=== PATIENT | female | born 1970 | race Caucasian/White ===

== ENCOUNTER → 2018-04-06 08:55 | Outpatient (CLI) | payer OTHER, SELFPAY ==
[2018-04-06 10:09] LABS: Cancer Antigen 125 < 6 U/mL (0-35)
== END ==
PROVIDERS: Visit Provider Nurse Practitioner Gerontology
DX: C55 Malignant neoplasm of uterus, part unspecified (principal)
CPT/HCPCS: 36415; 86304

== ENCOUNTER 2018-04-18 14:21 | Oncology outpatient (ONC) | payer OTHER, SELFPAY ==
--- NOTE | 2018-04-18 10:39 | P.PNONC_ITS ---
PN -Subjective Interval history: The patient is a 48 year old Female who is being seen in the clinic 04/18/2018. She carries a diagnosis of uterine carcinoma FIGO stage III. Patient presents today for her 6 month interval follow-up. She had a CT scan of the chest abdomen pelvis 10/05/2018 specifically to follow-up on the indeterminate findings in the lungs which included opacity in the right lung and an adjacent nodule. Reassuringly the CT scan described below showing no change without any new findings to suggest recurrent disease. Pt is requesting to repeat the scan noting incidental findings as well as her risk of recurrence. She is also followed by gynecology Dr Jackson. Keya has no new complaints on exam today, overall feeling quite well aside from a viral cold for almost 4 weeks now with a sore throat, no fever or malaise, mild cough. Remainder of review systems otherwise negative for any new symptoms such as focal bone pains chest pain shortness of breath lower extremity swelling or edema distention bloating or change in bowel habits. Past Medical History The patient's past medical history is significant for: 1) Endometrial adenocarcinoma, FIGO stage IIIa. Diagnosis/surgery: 01/02/2016. Hysteroscopy with D&C procedure. Indication was heavy menstrual bleeding for 2 years and an abnormal transvaginal ultrasound on 06/05/2015 which identified a focus of hypo-echogenicity in the fundus. Pathology was consistent with an endometrial type adenocarcinoma arising in a background of complex endometrial hyperplasia. FIGO grade was 2 out of 3. 01/13/2016. Robotic laparoscopy with Dr. Zita Marte. Pathology confirming a 3.5 cm endometrial lesion invading 8 mm of 28 mm myometria thickness (less than 50%). Histology was consistent with an endometrial adenocarcinoma arising in a background of complex atypical hyperplasia. FIGO grade was reported at 1. No LV I. 8 right pelvic lymph nodes and 5 periaortic lymph nodes were removed and none of which were involved with disease. Bilateral salpingo-oophorectomy identifying atypical epithelial proliferation of the right ovary consistent with his metastatic endometrial adenocarcinoma along the surface of the ovary. In the omentum only fibroadipose tissue was identified no neoplasm. Cytology from the washings however were positive immunostains: uniformly positive for PAX 8 and MOC 3. ER was positive. Final pathological stage was a FIGO IIIa. Clinical staging workup, baseline: 02/06/2016. CT of the chest abdomen and pelvis. Small amount of free fluid in the right lower hemipelvis was identified likely postoperative small hematoma. Indeterminate 3 mm right middle lung pulmonary nodule seen. Risk factors: Nulliparity, BSA, and endometrial hyperplasia. She's had no exogenous estrogen exposure. 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 MLH1 methylation of the MLH1 promoter region was positive consistent with a sporatic MSI-H presentation. No further testing for Tinoco syndrome was recommended. Postop CA 125 not drawn. Prognosis: Based on FIGO stage 5 year survival at 52%, the latter predicting an improved overall survival from baseline after treatment. Based on the patient's FIGO grade stage III she is a high risk for recurrence. Treatment plan: Adjuvant chemotherapy. Goals are curative. Utilization of adjuvant radiation therapy in the community setting is unproven at this time, would not be recommended outside of a clinical trial. However consult with radiation oncology at the completion of cycle 6 of therapy will be offered to the patient. Treatment regimen: 02/19/2016-06/29/2016. Carboplatin AUC of 6 every 3 weeks ?6 cycles. Paclitaxel 80 mg/m? weekly ?18. Dose reduction by 20% for both carboplatin and paclitaxel starting cycle 4 week 3. Patient had 1 week delay between cycle 4 week 2 and 3 of therapy secondary neutropenia. Post chemotherapy consultation with radiation oncology at [facility] resulted in no strong recommendation for post chemotherapy radiation which the patient concurred. Surveillance: NCCN 2017 guidelines: Physical exam every 3-6 months for years 2-3 then 6 months or annually. CEA 125 if initially elevated. Imaging if clinically indicated. 09/29/2016. CT of the chest abdomen and pelvis. No evidence of recurrence. This reports stable pulmonary nodules 2 in the left lower lobe both measuring 2 mm and one in the right lower lobe measuring 3 mm. In addition soft tissue thickening in the perirectal region likely scar tissue is unchanged 01/12/2017. CT chest abdomen pelvis with contrast. No evidence of recurrence. Right lower lobe lesion unchanged. No mention of left lower lobe lesions. In the medial right lung base is a new area of airspace opacity. 04/06/2017. CT chest abdomen and pelvis with contrast. No evidence of recurrence. Right lower lobe lesion unchanged. Nearby 4 mm nodule also unchanged since January 2017. No left lung lesions reported. Anterior mediastinal heterogeneous soft tissue density likely thymus hyperplasia unchanged. No adenopathy seen below the diaphragm. No ascites. Home Medications and Allergies Home Medications Medication Instructions Recorded Confirmed Type gabapentin [Neurontin] 300 mg PO HS #0 10/13/17 History pseudoephedrine HCl [Sudafed 12 120 mg PO Q12HP PRN #0 10/13/17 History Hour] azithromycin [Zithromax Z-Randy] 250 mg PO DAILY #6 tab 04/18/18 Rx Exam - Constitutional positive no acute distress, positive average body habitus - Routine HEENT Exam Eye: Present: conjunctivae pink. Absent: conjunctival icterus, scleral injection ENT: Present: mucous membranes moist, oropharynx clear Comments: mild erythema posterior pharynx - Routine Neck Exam Present: supple. Absent: lymphadenopathy - Routine Respiratory Exam Present: Clear to auscultation bilaterally. Absent: rales, rhonchi, wheezes - Routine Cardiovascular Exam Present: RRR, S1, S2. Absent: murmur, gallop, rubs, JVD - Routine Abdominal Exam Present: soft, normoactive bowel sounds. Absent: tenderness, distended, organomegaly, mass Palpation/Percussion: Absent: fluid waves - Routine Extremities Exam Absent: edema, calf tenderness - Routine Skin Exam Present: intact, normal turgor. Absent: rash - Routine Neurological Exam Present: alert, oriented X3 - Routine Psychiatric Exam Present: normal affect Assessment and Plan (1) Malignant neoplasm of endometrium Onset Date: 12/15/16 Current visit: No Status: None The patient is a 48 year old Female who is being seen in the clinic 04/18/2018. She carries a diagnosis of uterine carcinoma FIGO stage III. Reassuringly on exam today no clinical signs or symptoms to suggest disease recurrence. Reassuringly, CA 125 remains low at less than 6. Patient is requesting to repeat another CT scan. She is just now coming up on her 2 year robert since diagnosis. Noting her FIGO score of stage III and a higher risk of recurrence this is quite reasonable. In discussion with the patient I will order a CT scan of chest abdomen pelvis for this June 2018. In regards to her ?cold symptoms? for almost 4 weeks now specifically sore throat and mild cough I have written the patient a prescription for Z-Randy if she is not feeling better in the next 2 or 3 days she may go ahead and take it. If symptoms begin to improve she is to discard the prescription. Patient verbalizes understanding and agrees with the above plan of care. Return to clinic in 6 months time I would like for her to establish with 1 of our new oncologist at which time we will also check a CBC, CMP, CA 125. Follow- up with gynecology Dr Jackson.
[2018-04-18 14:39] VITALS: BP 130/80; PULSE 64; RESP 18; TEMP 36.4; O2SAT 98
== END 2018-05-03 14:14 ==
LOC: ONC 14:25
PROVIDERS: PCP Family Medicine; Visit Provider Nurse Practitioner Gerontology
DX: Z08 Encounter for follow-up examination after completed treatment for malignant neoplasm (principal); Z85.42 Personal history of malignant neoplasm of other parts of uterus
CPT/HCPCS: 99214

== ENCOUNTER → 2018-08-09 07:39 | Outpatient (CLI) | payer OTHER, SELFPAY ==
[2018-08-09 08:28] LABS: Add Manual Diff / Slide Review NO; Basophils Absolute Auto 0 /uL (0-100); Basophils Percent Auto 0.8 % (0-2); Eosinophils Absolute Auto 200 /uL (0-450); Eosinophils Percent Auto 3.3 % (2-4); Hematocrit 42.7 % (36-46); Hemoglobin 14.3 g/dL (12.0-16.0); Lymphocytes Absolute Auto 1800 /uL (1100-4500); Lymphocytes Percent Auto 33.7 % (25-40); Mean Corpuscular HGB Conc 33.6 % (30-36); Mean Corpuscular Hemoglobin 30.6 PG (26-34); Monocytes Absolute Auto 400 /uL (0-900); Monocytes Percent Auto 7.7 % (3-14); Neutrophils Absolute Auto 3000 /uL (1500-7000); Neutrophils Percent Auto 54.5 % (50-75); Platelet Count 361 X10^3/uL (150-400); Red Blood Cell Count 4.69 X10^6/uL (4.0-5.2); Red Cell Distribution Width 13.4 % (11.6-14.8); White Blood Cell Count 5.4 X10^3/uL (4.5-11.0)
--- NOTE | 2018-08-09 08:37 | DI.CT.S_ITS ---
PROCEDURE: CT CHEST ABD PEL W CON INDICATIONS: uterine carcinoam FIGO III TECHNIQUE: After the administration of oral and intravenous contrast, 5 mm thick sections acquired from the lung apices to the symphysis. 5 mm coronal and sagittal reformats were performed, with additional 7 mm coronal MIP reformats through the lungs. For radiation dose reduction, the following was used: automated exposure control, adjustment of mA and/or kV according to patient size. COMPARISON: [facility], CT, CHEST/ABD/PEL WITH CONTRAST, 10/05/2017, 10:35. [facility], CT, CHEST/ABD/PEL WITH CONTRAST, 04/06/2017, 10:57. FINDINGS: Image quality: Excellent. CHEST: Lungs and pleura: No acute airspace opacities. The posterior medial right lower lobe 4 mm nodule documented from the distant past is again seen on series 3 image 34, and no new pulmonary nodules have developed. No pleural effusions or pneumothorax. Central and peripheral airways appear patent and normal in caliber. Mediastinum: Heart size is normal. No pericardial effusion. No mediastinal or hilar adenopathy by size criteria. Thoracic aorta and central pulmonary arteries are normal in size. Esophagus is normal in caliber. No hiatal hernia. Chest wall: No axillary or supraclavicular adenopathy by size criteria. Thyroid gland appears normal where well visualized. Left lateral rib fractures are present, nondisplaced, involving the left fourth, fifth and sixth ribs. This resulted from being thrown from a horse approximately 2 weeks ago according to the patient. No osteolytic or blastic bone lesion is associated. ABDOMEN: Solid organs: Liver is normal in size and enhancement. The liver shows generalized fatty infiltration, mild to moderate in severity, stable over time. Gallbladder appears normal. Biliary system is non dilated. Pancreas enhances normally. Spleen is normal in size and enhancement. No adrenal nodules. Kidneys demonstrate normal size and enhancement, without hydronephrosis. Peritoneum and bowel: Bowel loops demonstrate normal wall thickness and caliber. No free fluid or air. Nodes and vessels: No retroperitoneal or mesenteric adenopathy by size criteria. Aorta and inferior vena cava are normal in size. Miscellaneous: No ventral hernias. PELVIS: Genitourinary: Bladder wall thickness is normal. Prior hysterectomy. Miscellaneous: No inguinal hernias or adenopathy. Bones: No suspicious bony lesions. No vertebral body compression fractures. IMPRESSION: 1. No sign of metastatic disease in this patient with prior hysterectomy related to history of endometrial carcinoma. 2. Long-standing benign appearing posterior medial right lower lobe 4 mm lung nodule again noted. Benign etiology. 3. The patient reports significant upper left lateral rib pain after being thrown from a horse 2 weeks ago. Nondisplaced left lateral fourth, fifth and sixth rib fractures are present. No osteolytic or blastic bone lesion is found. Benign traumatic etiology. Dictated by: Antonio Evans M.D. on 08/09/2018 at 9:44 Approved by: Antonio Evans M.D. on 08/09/2018 at 9:53
[2018-08-09 08:48] LABS: Alanine Aminotransferase 44 IU/L (9-52); Albumin 4.7 g/dL (3.5-5.0); Albumin Globulin Ratio 1.3 (1.0-2.8); Alkaline Phosphatase 129 U/L (38-126); Aspartate Aminotransferase 35 IU/L (14-36); BUN Creatinine Ratio 24.3 (6-22); Bilirubin Total 0.5 mg/dL (0.2-1.3); Blood Urea Nitrogen 17 mg/dL (7-17); Calcium 9.7 mg/dL (8.4-10.2); Carbon Dioxide 29 mmol/L (22-32); Chloride 100 mmol/L (98-107); Estimated Glomerular Filt Rate > 60.0 mL/min (>60); Globulin 3.7 g/dL (1.7-4.1); Glucose 156 mg/dL (70-100); HEMOLYSIS < 15 (0-50); Sodium 139 mmol/L (137-145); Total Protein 8.4 g/dL (6.3-8.2)
[2018-08-09 09:20] LABS: Cancer Antigen 125 < 6 U/mL (0-35)
== END ==
PROVIDERS: PCP Family Medicine; Visit Provider Nurse Practitioner Gerontology
DX: C54.1 Malignant neoplasm of endometrium (principal); R91.1 Solitary pulmonary nodule; S22.42XA Multiple fractures of ribs, left side, initial encounter for closed fracture; V80.010A Animal-rider injured by fall from or being thrown from horse in noncollision accident, initial encounter
CPT/HCPCS: 36415; 71260; 74177; 80053; 85025; 86304; Q9967

== ENCOUNTER → 2019-02-08 07:47 | Outpatient (CLI) | payer OTHER, SELFPAY ==
[2019-02-08 07:59] LABS: Add Manual Diff / Slide Review NO; Basophils Absolute Auto 0 /uL (0-100); Basophils Percent Auto 0.8 % (0-2); Eosinophils Absolute Auto 100 /uL (0-450); Eosinophils Percent Auto 2.8 % (2-4); Hematocrit 42.6 % (36-46); Hemoglobin 14.4 g/dL (12.0-16.0); Lymphocytes Absolute Auto 1600 /uL (1100-4500); Lymphocytes Percent Auto 39.7 % (25-40); Mean Corpuscular HGB Conc 33.8 % (30-36); Mean Corpuscular Volume 91.6 fL (80-100); Monocytes Absolute Auto 300 /uL (0-900); Monocytes Percent Auto 7.5 % (3-14); Neutrophils Absolute Auto 2000 /uL (1500-7000); Neutrophils Percent Auto 49.2 % (50-75); Platelet Count 300 X10^3/uL (150-400); Red Blood Cell Count 4.64 X10^6/uL (4.0-5.2); Red Cell Distribution Width 13.9 % (11.6-14.8); White Blood Cell Count 4.1 X10^3/uL (4.5-11.0)
[2019-02-08 08:23] LABS: Alanine Aminotransferase 32 IU/L (9-52); Albumin 4.6 g/dL (3.5-5.0); Albumin Globulin Ratio 1.4 (1.0-2.8); Alkaline Phosphatase 59 U/L (38-126); Aspartate Aminotransferase 25 IU/L (14-36); BUN Creatinine Ratio 27.1 (6-22); Bilirubin Total 0.8 mg/dL (0.2-1.3); Blood Urea Nitrogen 19 mg/dL (7-17); Calcium 9.8 mg/dL (8.4-10.2); Carbon Dioxide 28 mmol/L (22-32); Chloride 102 mmol/L (98-107); Estimated Glomerular Filt Rate > 60.0 mL/min (>60); Globulin 3.2 g/dL (1.7-4.1); Glucose 135 mg/dL (70-100); HEMOLYSIS < 15 (0-50); Sodium 141 mmol/L (137-145); Total Protein 7.8 g/dL (6.3-8.2)
--- NOTE | 2019-02-08 08:50 | DI.CT.S_ITS ---
PROCEDURE: CT CHEST ABD PEL W CON INDICATIONS: f/u endometrial cancer TECHNIQUE: After the administration of intravenous contrast, 5 mm thick sections acquired from the lung apices to the symphysis. 5 mm coronal and sagittal reformats were performed, with additional 7 mm MIP reformats through the lungs. For radiation dose reduction, the following was used: automated exposure control, adjustment of mA and/or kV according to patient size. COMPARISON: [facility], CT, CHEST/ABD/PEL WITH CONTRAST, 02/06/2016, 11:59. [facility], CT, CT CHEST ABD PEL W CON, 08/09/2018, 8:28. FINDINGS: Image quality: Excellent. CHEST: Lungs and pleura: The 4 mm pulmonary nodule the medial right lung base is unchanged when compared with the study dated 02/06/16. Mediastinum: Heart size is normal. No pericardial effusion. No mediastinal or hilar adenopathy by size criteria. Thoracic aorta and central pulmonary arteries are normal in size. Esophagus is normal in caliber. No hiatal hernia. Chest wall: No axillary or supraclavicular adenopathy by size criteria. Thyroid gland is unremarkable. ABDOMEN: Solid organs: Liver is normal in size and enhancement. Gallbladder is unremarkable. Biliary system is non dilated. Pancreas enhances normally. Spleen is normal in size and enhancement. No adrenal nodules. Kidneys demonstrate normal size and enhancement, without hydronephrosis. Peritoneum and bowel: Bowel loops demonstrate normal wall thickness and caliber. The appendix is thin walled and contrast-filled. There are scattered sigmoid diverticula. No evidence for diverticulitis. No free fluid or air. Nodes and vessels: No retroperitoneal or mesenteric adenopathy by size criteria. Aorta and inferior vena cava are normal in size. Miscellaneous: No ventral hernias. PELVIS: Genitourinary: Bladder wall thickness is normal. The uterus and ovaries are surgically absent. Miscellaneous: No inguinal hernias or adenopathy. Bones: No suspicious bony lesions. No vertebral body compression fractures. IMPRESSION: 1. No findings to suggest tumor recurrence or metastasis. Dictated by: Connie Calderón M.D. on 02/08/2019 at 8:55 Approved by: Connie Calderón M.D. on 02/08/2019 at 9:14
[2019-02-08 08:54] LABS: Cancer Antigen 125 < 6 U/mL (0-35)
== END ==
PROVIDERS: PCP Family Medicine
DX: C54.1 Malignant neoplasm of endometrium (principal)
CPT/HCPCS: 36415; 71260; 74177; 80053; 85025; 86304; Q9967

== ENCOUNTER → 2019-07-25 11:30 | Outpatient (CLI) | payer OTHER, SELFPAY ==
--- NOTE | 2019-07-25 | DI.MRI.S_ITS ---
PROCEDURE: MR CERVICAL SPINE WO CON INDICATIONS: Cervicalgia TECHNIQUE: Noncontrast sagittal T1 spin echo and T2 fast spin echo, sagittal STIR, foraminal oblique sagittal T2 fast spin echo, and axial gradient echo or T2 fast spin echo through the cervical spine. COMPARISON: [facility], MR, C-SPINE W&WO CONTRAST, 10/20/2016, 8:33. FINDINGS: Image quality: Excellent. Alignment and Curvature: There is normal bony alignment. Bone Marrow: Marrow demonstrates normal overall signal. Spinal Cord: Visualized spinal cord has normal size and signal. No cerebellar tonsillar herniation. Paraspinous Soft Tissues: No paravertebral masses. Prevertebral soft tissues are normal in thickness. C2-C3: No canal stenosis or foraminal stenosis. Bilateral facet hypertrophy. C3-C4: No canal stenosis or foraminal stenosis. Bilateral facet hypertrophy C4-C5: No canal stenosis or foraminal stenosis. Mild bilateral uncovertebral joint hypertrophy. Right facet hypertrophy. C5-C6: There is increased signal present in the disc. The adjacent endplates are intact. There is no edema in the subjacent C5 and C6 vertebral bodies. There is a central posterior disc protrusion/extrusion with associated epidural tissue centered at the C5-C6 disc which may represent acute hemorrhage related to disc herniation. However, epidural abscess cannot be excluded. There is significant compression on the anterior aspect of the cord and severe canal stenosis. The epidural signal abnormality measures approximately 1.6 x 1.3 x 0.4 cm. There is bilateral uncovertebral joint hypertrophy. There is mild right foraminal narrowing and moderate left foraminal narrowing with mild flattening deformity of the right C6 nerve root. C6-C7: No canal stenosis. Bilateral uncovertebral joint hypertrophy. Mild bilateral foraminal narrowing. C7-T1: No canal stenosis or foraminal stenosis. IMPRESSION: 1. There is a process centered at C5-C6 which most likely represents acute disc protrusion/extrusion and associated epidural hemorrhage. However, there is signal abnormality in the disc, and the process the relatively can represent discitis and epidural abscess. There is severe associated canal stenosis. Comment: Findings were discussed with Dr. Torres, covering for Dr. Rasheed at the time of study dictation on 07.25.19 at 12:57 hours. Clinical correlation is suggested. Possible referral to a cervical spine surgeon, and possible cervical spine MRI with and without contrast may be helpful. Dictated by: Ryan Madden M.D. on 07/25/2019 at 12:19 Approved by: Ryan Madden M.D. on 07/25/2019 at 13:07
== END ==
PROVIDERS: PCP Family Medicine; Visit Provider Nurse Practitioner Family
DX: M50.222 Other cervical disc displacement at C5-C6 level (principal); M48.02 Spinal stenosis, cervical region
CPT/HCPCS: 72141

== ENCOUNTER → 2019-08-07 08:54 | Outpatient (CLI) | payer OTHER, SELFPAY ==
[2019-08-07 09:17] LABS: Add Manual Diff / Slide Review NO; Basophils Absolute Auto 0 /uL (0-100); Basophils Percent Auto 0.9 % (0-2); Eosinophils Absolute Auto 200 /uL (0-450); Eosinophils Percent Auto 4.8 % (2-4); Hematocrit 42.3 % (36-46); Hemoglobin 14.4 g/dL (12.0-16.0); Lymphocytes Absolute Auto 1800 /uL (1100-4500); Lymphocytes Percent Auto 37.1 % (25-40); Mean Corpuscular HGB Conc 33.9 % (30-36); Mean Corpuscular Volume 91.3 fL (80-100); Monocytes Absolute Auto 300 /uL (0-900); Monocytes Percent Auto 6.7 % (3-14); Neutrophils Absolute Auto 2400 /uL (1500-7000); Neutrophils Percent Auto 50.5 % (50-75); Platelet Count 320 X10^3/uL (150-400); Red Blood Cell Count 4.64 X10^6/uL (4.0-5.2); Red Cell Distribution Width 13.9 % (11.6-14.8); White Blood Cell Count 4.8 X10^3/uL (4.5-11.0)
[2019-08-07 09:40] LABS: Alanine Aminotransferase 36 IU/L (<35); Albumin 4.7 g/dL (3.5-5.0); Albumin Globulin Ratio 1.5 (1.0-2.8); Alkaline Phosphatase 56 U/L (38-126); Aspartate Aminotransferase 25 IU/L (14-36); BUN Creatinine Ratio 22.9 (6-22); Bilirubin Total 0.5 mg/dL (0.2-1.3); Blood Urea Nitrogen 16 mg/dL (7-17); Carbon Dioxide 30 mmol/L (22-32); Chloride 102 mmol/L (98-107); Estimated Glomerular Filt Rate > 60.0 mL/min (>60); Globulin 3.2 g/dL (1.7-4.1); Glucose 150 mg/dL (70-100); HEMOLYSIS < 15 (0-50); Potassium 4.9 mmol/L (3.4-5.1); Sodium 139 mmol/L (137-145); Total Protein 7.9 g/dL (6.3-8.2)
[2019-08-07 10:10] LABS: Cancer Antigen 125 < 6 U/mL (0-35)
== END ==
PROVIDERS: PCP Family Medicine
DX: C54.1 Malignant neoplasm of endometrium (principal)
CPT/HCPCS: 36415; 80053; 85025; 86304

== ENCOUNTER → 2020-03-11 08:56 | Outpatient (CLI) | payer OTHER, SELFPAY ==
--- NOTE | 2020-03-11 08:57 | DI.CT.S_ITS ---
PROCEDURE: CT CHEST ABD PEL W CON INDICATIONS: endometrial cancer TECHNIQUE: After the administration of oral and intravenous contrast, 5 mm thick sections acquired from the lung apices to the symphysis. 5 mm coronal and sagittal reformats were performed, with additional 7 mm coronal MIP reformats through the lungs. For radiation dose reduction, the following was used: automated exposure control, adjustment of mA and/or kV according to patient size. COMPARISON: [facility], CT, CHEST/ABD/PEL WITH CONTRAST, 02/06/2016, 11:59. Merged With [facility], CT, CT CHEST ABD PEL W CON, 02/08/2019, 8:47. FINDINGS: Image quality: Excellent. CHEST: Lungs and pleura: Right lower lobe medially pulmonary nodule measuring 0.4 cm, (5/141), unchanged since 2016 suggesting a benign etiology. Punctate nodule in the left lower lobe, also unchanged. Mild scarring in the medial right lower lobe. No new pulmonary nodule seen. No acute airspace opacities. No pleural effusions or pneumothorax. Central and peripheral airways appear patent and normal in caliber. Mediastinum: Heart size is normal. No pericardial effusion. No mediastinal or hilar adenopathy by size criteria. Thoracic aorta and central pulmonary arteries are normal in size. Esophagus is normal in caliber. Trace oral contrast in the esophagus. No hiatal hernia. Chest wall: No axillary or supraclavicular adenopathy by size criteria. Thyroid gland is unremarkable. Prior left 7th posterior rib fracture. ABDOMEN: Solid organs: Small enhancing focus in the inferior right lobe of the liver, (2/63), more conspicuous compared to the prior exam. This abnormality is ill-defined. Additional geographic area of enhancement at the falciform ligament which most likely represents focal fatty sparing or perfusion abnormality. A probable hepatic steatosis. Gallbladder is unremarkable. Biliary system is non dilated. Pancreas enhances normally. Spleen is normal in size and enhancement. No adrenal nodules. Kidneys demonstrate normal size and enhancement, without hydronephrosis. Peritoneum and bowel: Scattered colonic diverticuli. Minimal inflammatory change surrounding a diverticuli, (2/87). No extraluminal gas or fluid. The appendix is normal. Nodes and vessels: No retroperitoneal or mesenteric adenopathy by size criteria. No peritoneal nodules. Aorta and inferior vena cava are normal in size. Miscellaneous: Tiny fat containing periumbilical hernia. PELVIS: Genitourinary: Bladder is unremarkable. Uterus is absent. No free fluid. Miscellaneous: No inguinal hernias or adenopathy. Bones: No suspicious bony lesions. No vertebral body compression fractures. IMPRESSION: 1. No recurrent disease. No definite metastatic disease. 2. Subtle enhancing focus in the inferior right lobe of the liver. Favor perfusion abnormality over hepatic neoplasm or metastasis. Hepatic steatosis. 3. No ascites. No adenopathy. 4. Post hysterectomy. Dictated by: Triston Saldaña M.D. on 03/11/2020 at 12:37 Approved by: Triston Saldaña M.D. on 03/11/2020 at 12:59
[2020-03-11 09:27] LABS: Add Manual Diff / Slide Review NO; Basophils Absolute Auto 0 /uL (0-100); Basophils Percent Auto 0.5 % (0-2); Eosinophils Absolute Auto 100 /uL (0-450); Eosinophils Percent Auto 1.9 % (2-4); Hematocrit 39.9 % (36-46); Hemoglobin 13.6 g/dL (12.0-16.0); Lymphocytes Absolute Auto 1800 /uL (1100-4500); Lymphocytes Percent Auto 33.6 % (25-40); Mean Corpuscular HGB Conc 34.1 % (30-36); Monocytes Absolute Auto 400 /uL (0-900); Neutrophils Absolute Auto 3000 /uL (1500-7000); Platelet Count 317 X10^3/uL (150-400); Red Blood Cell Count 4.39 X10^6/uL (4.0-5.2); Red Cell Distribution Width 13.2 % (11.6-14.8); White Blood Cell Count 5.3 X10^3/uL (4.5-11.0)
[2020-03-11 09:31] LABS: Alanine Aminotransferase 52 IU/L (<35); Albumin 4.7 g/dL (3.5-5.0); Albumin Globulin Ratio 1.3 (1.0-2.8); Alkaline Phosphatase 82 U/L (38-126); Aspartate Aminotransferase 35 IU/L (14-36); BUN Creatinine Ratio 24.7 (6-22); Bilirubin Total 0.6 mg/dL (0.2-1.3); Blood Urea Nitrogen 18 mg/dL (7-17); Calcium 9.5 mg/dL (8.4-10.2); Carbon Dioxide 30 mmol/L (22-32); Chloride 103 mmol/L (98-107); Estimated Glomerular Filt Rate > 60.0 mL/min (>60); Globulin 3.6 g/dL (1.7-4.1); Glucose 157 mg/dL (70-100); HEMOLYSIS < 15 (0-50); Potassium 4.5 mmol/L (3.4-5.1); Sodium 138 mmol/L (137-145); Total Protein 8.3 g/dL (6.3-8.2)
== END ==
PROVIDERS: PCP Family Medicine; Referring Provider Internal Medicine Hematology & Oncology; Visit Provider Internal Medicine Hematology & Oncology
DX: C54.1 Malignant neoplasm of endometrium (principal); K76.0 Fatty (change of) liver, not elsewhere classified; Z90.710 Acquired absence of both cervix and uterus
CPT/HCPCS: 36415; 71260; 74177; 80053; 85025; Q9967

== ENCOUNTER → 2021-08-30 10:03 | Outpatient (CLI) | payer OTHER, SELFPAY ==
--- NOTE | 2021-08-30 10:04 | DI.RAD.S_ITS ---
PROCEDURE: XR FINGER RT MIN 2V INDICATIONS: dog bite TECHNIQUE: AP hand, 2 views of the 2nd finger(s) acquired. COMPARISON: None. FINDINGS: Bones: No fractures or dislocations. No suspicious bony lesions. Soft tissues: No suspicious soft tissue calcifications. Second finger soft tissue swelling noted. No radiopaque foreign body. IMPRESSION: Soft tissue swelling without fracture or foreign body Approved by: Vincent Elise M.D. on 08/30/2021 at 9:25
== END ==
PROVIDERS: PCP Family Medicine; Referring Provider Family Medicine; Visit Provider Family Medicine
DX: S61.250A Open bite of right index finger without damage to nail, initial encounter (principal); W54.0XXA Bitten by dog, initial encounter
CPT/HCPCS: 73140

== ENCOUNTER → 2021-09-14 07:27 | Outpatient (CLI) | payer OTHER, SELFPAY ==
[2021-09-15 06:22] LABS: RPR Screen Non Reactive (Non Reactive)
[2021-09-15 21:36] LABS: Treponema pallidum Antibodies Non Reactive (Non Reactive)
[2021-09-16 13:12] LABS: Angiotensin Converting Enzyme 44 U/L (14-82)
[2021-09-16 14:08] LABS: ANA Screen, IFA Negative (.)
[2021-09-23 21:07] LABS: HLA B27 Positive (.)
== END ==
PROVIDERS: PCP Family Medicine; Referring Provider Ophthalmology; Visit Provider Ophthalmology
DX: H20.00 Unspecified acute and subacute iridocyclitis (principal)
CPT/HCPCS: 36415; 81374; 82164; 86038; 86592; 86780

== ENCOUNTER → 2022-02-24 17:47 | Outpatient (CLI) | payer OTHER, SELFPAY ==
[2022-02-24 18:05] LABS: Add Manual Diff / Slide Review NO; Basophils Absolute Auto 0 /uL (0-100); Basophils Percent Auto 0.5 % (0-2); Eosinophils Absolute Auto 100 /uL (0-450); Eosinophils Percent Auto 1.8 % (2-4); Hematocrit 40.8 % (36-46); Hemoglobin 14.1 g/dL (12.0-16.0); Lymphocytes Absolute Auto 2300 /uL (1100-4500); Mean Corpuscular HGB Conc 34.5 % (30-36); Mean Corpuscular Hemoglobin 30.6 PG (26-34); Mean Corpuscular Volume 88.6 fL (80-100); Monocytes Absolute Auto 400 /uL (0-900); Monocytes Percent Auto 7.3 % (3-14); Neutrophils Absolute Auto 3100 /uL (1500-7000); Neutrophils Percent Auto 51.4 % (50-75); Platelet Count 298 X10^3/uL (150-400); Red Blood Cell Count 4.61 X10^6/uL (4.0-5.2); Red Cell Distribution Width 13.5 % (11.6-14.8)
[2022-02-24 18:14] LABS: Alanine Aminotransferase 33 IU/L (<35); Albumin 4.7 g/dL (3.5-5.0); Albumin Globulin Ratio 1.2 (1.0-2.8); Alkaline Phosphatase 67 U/L (38-126); Aspartate Aminotransferase 28 IU/L (14-36); BUN Creatinine Ratio 16.5 (6-22); Bilirubin Total 0.8 mg/dL (0.2-1.3); Blood Urea Nitrogen 13 mg/dL (7-17); Calcium 9.4 mg/dL (8.4-10.2); Carbon Dioxide 27 mmol/L (22-32); Chloride 102 mmol/L (98-107); Estimated Glomerular Filt Rate > 60 mL/min (>60); Globulin 3.8 g/dL (1.7-4.1); Glucose 120 mg/dL (70-100); HEMOLYSIS 24 (0-50); Potassium 3.9 mmol/L (3.4-5.1); Sodium 138 mmol/L (137-145); Total Protein 8.5 g/dL (6.3-8.2)
== END ==
PROVIDERS: PCP Family Medicine; Referring Provider Internal Medicine Hematology & Oncology; Visit Provider Internal Medicine Hematology & Oncology
DX: C54.1 Malignant neoplasm of endometrium (principal)
CPT/HCPCS: 36415; 80053; 85025

== ENCOUNTER → 2022-11-23 08:08 | Outpatient (CLI) | payer OTHER, SELFPAY ==
--- NOTE | 2022-11-23 08:12 | DI.MG.S_ITS ---
BILATERAL DIGITAL SCREENING MAMMOGRAM 3D/2D WITH CAD: 11/23/2022 CLINICAL: Routine screening. Family history of breast cancer. Comparison is made to exam dated: 09/29/2017 mammogram - out side. There are scattered areas of fibroglandular density in both breasts (category b / 25%-50% glandular tissue). Current study was also evaluated with a Computer Aided Detection (CAD) system. No significant masses, calcifications, or other findings are seen in either breast. There has been no significant interval change. IMPRESSION: NEGATIVE There is no mammographic evidence of malignancy. A 1 year screening mammogram is recommended. Based on the Tyrer Cuzick model (a risk assessment model) the patient's lifetime risk is 17.2% and her 10 year risk is 5.1%. According to the ACR, ACS, and NCCN guidelines, an annual breast MRI exam along with mammogram is recommended if the patient's lifetime risk is 20% or greater. This exam was interpreted at Station ID: [id number]. NOTE: For mammograms, a report in lay terms will be sent to the patient. Approximately 15% of breast malignancies will not be visualized mammographically. In the management of a palpable breast mass, a negative mammogram must not discourage biopsy of a clinically suspicious lesion. Electronically Signed By: Triston [email or web address]:11/23/2022 09:23:56 copy to: SRAVANI HENDRIX copy to: Junseng. Brian COSBY, [facility] letter sent: Normal Exam ACR BI-RADS Category 1: Negative 3341F
== END ==
PROVIDERS: PCP Family Medicine; Referring Provider Family Medicine; Visit Provider Family Medicine
DX: Z12.31 Encounter for screening mammogram for malignant neoplasm of breast (principal); Z80.3 Family history of malignant neoplasm of breast
CPT/HCPCS: 77063; 77067

== ENCOUNTER → 2023-09-02 09:26 | Outpatient (CLI) | payer OTHER, SELFPAY ==
--- NOTE | 2023-09-02 09:28 | DI.CT.S_ITS ---
PROCEDURE: CT ABDOMEN PELVIS W CON INDICATIONS: Abd pain/hx endometrial cancer TECHNIQUE: After the administration of intravenous contrast, axial sections acquired from the lung bases to the pubic symphysis. Coronal and sagittal reformats were performed. For radiation dose reduction, the following was used: automated exposure control, adjustment of mA and/or kV according to patient size. COMPARISON: [facility], CT, CT CHEST ABD PEL W CON, 02/08/2019, 8:47. FINDINGS: Image quality: Diagnostic. Lower Chest: No significant findings. ABDOMEN: Liver: The liver is diffusely hypodense suggesting fatty infiltration. Gallbladder: No radiopaque gallstones or wall thickening. Biliary ducts: No biliary dilation. Pancreas: No ductal dilation. Spleen: Size is within normal limits. Adrenal Glands: No adrenal nodules. Kidneys and Ureters: No hydronephrosis. No solid mass. No complex renal cystic lesion which requires follow up. Stomach and Bowel: Normal colonic caliber, without significant wall thickening. The appendix is thin walled and gas filled. There are scattered sigmoid diverticula. No evidence for diverticulitis. Peritoneum: No abnormal intraperitoneal fluid. No free air. Ventral Wall: No significant ventral hernia. Abdominal Nodes: No retroperitoneal or mesenteric adenopathy by size criteria. Vessels: Aorta and inferior vena cava are normal in size. PELVIS: Pelvic Organs: Unremarkable. Bladder: No bladder wall thickening, accounting for underdistention. Pelvic Nodes: No enlarged lymph nodes. Miscellaneous: No inguinal hernias are seen. Bones: No aggressive osseous abnormality. IMPRESSION: 1. No acute intra-abdominal findings. Normal appendix. Diverticulosis. No acute diverticulitis. 2. No findings to suggest tumor recurrence or new metastasis. 3. Hepatic steatosis. Dictated by: Connie Calderón M.D. on 09/02/2023 at 12:35 Approved by: Connie Calderón M.D. on 09/02/2023 at 12:44
== END ==
LOC: CT 09:27
PROVIDERS: PCP Internal Medicine; Referring Provider Obstetrics & Gynecology; Visit Provider Obstetrics & Gynecology
DX: C54.1 Malignant neoplasm of endometrium (principal); R10.9 Unspecified abdominal pain; K57.30 Diverticulosis of large intestine without perforation or abscess without bleeding; K76.0 Fatty (change of) liver, not elsewhere classified
CPT/HCPCS: 74177; Q9967

== ENCOUNTER 2023-10-25 13:15 | Day surgery (SDC) | payer OTHER, SELFPAY ==
[2023-10-25 13:53] VITALS: BP 118/78; PULSE 63; RESP 16; TEMP 36.6; O2SAT 97
[2023-10-25] MEDS: LACTATED RINGERS 1,000 ML 150 ML IV (14:05)
--- NOTE | 2023-10-25 14:13 | P.HP_ITS ---
History of Present Illness History of Present Illness Date Patient Seen: 10/25/23 Time Patient Seen: 14:13 Chief complaint: Colonoscopy Narrative: 53-year-old woman here for screening colonoscopy. No previous colonoscopy. She carries a diagnosis of stage III endometrial carcinoma. She has mild but persistent right lower quadrant pain for the past several months. No family history of intestinal malignancy. [facility] Medical History Diabetes Surgical History Status post laparoscopic supracervical hysterectomy (01/13/16) Status post surgery (01/05/16) Social History Smoking Status: Never smoker alcohol intake: current Meds Home Medications and Allergies Home Medications Medication Instructions Recorded Confirmed Type clonidine HCl 0.1 mg tablet See Rx Instructions .Route 09/18/19 03/30/22 Rx .COMPLEX #30 tabs Cpap 04/16/21 03/30/22 History gabapentin 300 mg tablet 300 mg PO BEDTIME 04/16/21 03/30/22 History sodium,potassium,mag sulfates 17.5 See Rx Instructions PO .COMPLEX 02/08/23 Rx gram-3.13 gram-1.6 gram oral soln #354 mL (Suprep Bowel Prep Kit) metformin 500 mg tablet,extended 500 - 1,500 mg PO QAM 10/25/23 10/25/23 History release 24 hr Allergies Allergy/AdvReac Type Severity Reaction Status Date / Time No Known Drug Allergies Allergy Verified 03/30/22 08:32 Exam Vital Signs (past 8 hours): - 10/25/23 13:53 Temperature 97.9 F Pulse Rate 63 Respiratory Rate 16 Blood Pressure 118/78 Pulse Oximetry 97 Oxygen Delivery Method Room Air Oxygen Delivery Method Room Air Narrative Exam Narrative: General adult woman alert oriented no acute distress Chest nonlabored respiration Extremities warm well perfused Assessment & Plan Assessment & Plan narrative: The patient requires colorectal screening and colonoscopy is recommended. Technical details were discussed. Risks, benefits, alternatives explained. Risks including but not limited to myocardial infarction, aspiration, bleeding, pain, missed lesion, incomplete examination, need for further radiographic studies, colonic perforation, and need for major abdominal surgery were discussed. All questions were answered to their satisfaction, and they are in agreement with this plan.
--- NOTE | 2023-10-25 15:15 | P.OP.COLON_ITS ---
Operative Date/Time/Diagnoses Date of procedure: 10/25/23 Time of procedure: 15:15 Pre-op diagnosis: Colorectal screening Procedure & Clinicians Study performed: Screening colonoscopy Same procedure as scheduled: Yes Indications: Colorectal screening Surgeon: Freddie Broussard Procedure Notes Procedure in detail: The history and physical was performed/updated and the patient is ASA class is 2. The procedure was discussed in detail with the patient. Potential risks co mplications including infection, bleeding, missed diagnosis, perforation, need for surgery, and were explained. Their questions were answered and informed consent was obtained. Patient was brought to the procedure room and placed standard monitoring equipment. The patient's vital signs were monitored continuously throughout the entire procedure. Prior to starting time-out was performed. The patient was placed in the left lateral recumbent position. Procedural sedation was administered by anesthesia. Examination began with a thorough inspection of the perianal area there was no evidence of fissures, fistulae, external hemorrhoids or cutaneous malignancy. The colonoscopy scope was then placed into the anal canal and was advanced to the cecum, which was identified by the ileocecal valve, the appendiceal orifice and the confluence of the taenia. The scope was then slowly withdrawn examining colon thoroughly in all directions, irrigating it of any residual stool. The scope was retroflexed within the rectum The patient tolerated the procedure well. They will be discharged once criteria are met. The prep was of good/excellent quality. The withdrawl time was 6 minutes. FINDINGS * Normal colonoscopy. Normal healthy colonic mucosa without masses, polyps, or inflammation. Specimen(s): none sent Impression: Normal colonoscopy Post-procedure Recommendations: Colonoscopy in 10 years Disposition: same day surgery
[2023-10-25 15:17] VITALS: BP 120/76; PULSE 73; RESP 14; TEMP 36.4; O2SAT 97
[2023-10-25 15:22] VITALS: BP 125/71; PULSE 78; RESP 22; O2SAT 97
[2023-10-25 15:27] VITALS: BP 112/74; PULSE 77; RESP 19; TEMP 37; O2SAT 96
== END 2023-10-25 15:43 | disposition home or self-care (01) ==
PROVIDERS: PCP Internal Medicine; Referring Provider Surgery; Visit Provider Surgery
PROC: 0DJD8ZZ Inspection of Lower Intestinal Tract, Via Natural or Artificial Opening Endoscopic (ICD-10-PCS; CPT 45378; principal; 2023-10-25 14:15)
DX: Z12.11 Encounter for screening for malignant neoplasm of colon (principal)
CPT/HCPCS: 45378; J2704

== ENCOUNTER → 2024-01-27 08:25 | Outpatient (CLI) | payer OTHER, SELFPAY ==
--- NOTE | 2024-01-27 08:26 | DI.US.S_ITS ---
PROCEDURE: US ABDOMEN LIMITED INDICATIONS: Possible Inguinal Hernia TECHNIQUE: Real-time focused scanning was performed of the abdomen, with image documentation. COMPARISON: None. FINDINGS: Sonographic images in the right lower quadrant/inguinal region demonstrate no visualized hernia. No fluid collection or abnormal mass. IMPRESSION: No visualized hernia. Dictated by: Vivienne Loyola M.D. on 01/27/2024 at 16:44 Approved by: Vivienne Loyola M.D. on 01/27/2024 at 16:44
--- NOTE | 2024-01-27 08:26 | DI.MG.S_ITS ---
BILATERAL DIGITAL SCREENING MAMMOGRAM 3D/2D WITH CAD: 01/27/2024 CLINICAL: Routine screening. Family history of breast cancer. Comparison is made to exams dated: 11/23/2022 mammogram - [facility] and 09/29/2017 mammogram - [facility]. There are scattered areas of fibroglandular density in both breasts (category b / 25%-50% glandular tissue). Current study was also evaluated with a Computer Aided Detection (CAD) system. No significant masses, calcifications, or other findings are seen in either breast. There has been no significant interval change. IMPRESSION: NEGATIVE There is no mammographic evidence of malignancy. A 1 year screening mammogram is recommended. Based on the Tyrer Cuzick model (a risk assessment model) the patient's lifetime risk is 17.1% and her 10 year risk is 5.4%. According to the ACR, ACS, and NCCN guidelines, an annual breast MRI exam along with mammogram is recommended if the patient's lifetime risk is 20% or greater. This exam was interpreted at Station ID: [id number]. NOTE: For mammograms, a report in lay terms will be sent to the patient. Approximately 15% of breast malignancies will not be visualized mammographically. In the management of a palpable breast mass, a negative mammogram must not discourage biopsy of a clinically suspicious lesion. Electronically Signed By: Bossman wheeler/zonia:01/27/2024 12:01:51 letter sent: Normal Exam ACR BI-RADS Category 1: Negative [id number]
== END ==
LOC: MAMMO 08:25
PROVIDERS: PCP Internal Medicine; Referring Provider Internal Medicine; Visit Provider Internal Medicine
DX: Z12.31 Encounter for screening mammogram for malignant neoplasm of breast (principal); Z80.3 Family history of malignant neoplasm of breast; R92.323 Mammographic fibroglandular density, bilateral breasts; R10.31 Right lower quadrant pain
CPT/HCPCS: 76705; 77063; 77067

== ENCOUNTER → 2025-04-25 09:58 | Outpatient (CLI) | payer OTHER, SELFPAY ==
[2025-04-25 10:39] LABS: Hemoglobin A1C% w Est Avg Glu 8.1 % (4.0-6.0)
[2025-04-25 10:42] LABS: Add Manual Diff / Slide Review NO; Hematocrit 45.1 % (36-46); Hemoglobin 15.3 g/dL (12.0-16.0); Lymphocytes Absolute Auto 1600 /uL (1100-4500); Mean Corpuscular HGB Conc 33.8 % (30-36); Mean Corpuscular Hemoglobin 30.4 PG (26-34); Mean Corpuscular Volume 89.9 fL (80-100); Platelet Count 324 X10^3/uL (150-400)
[2025-04-25 10:54] LABS: Alanine Aminotransferase 41 IU/L (<35); Albumin 4.8 g/dL (3.5-5.0); Albumin Globulin Ratio 1.5 (1.0-2.8); Alkaline Phosphatase 75 U/L (38-126); Blood Urea Nitrogen 19 mg/dL (7-17); Calcium 9.3 mg/dL (8.4-10.2); Carbon Dioxide 24 mmol/L (22-32); Chloride 103 mmol/L (98-107); Cholesterol 198 mg/dL (140-199); Estimated Glomerular Filt Rate > 60 mL/min (>60); Globulin 3.2 g/dL (1.7-4.1); Glucose 230 mg/dL (70-99); HDL Cholesterol 75 mg/dL (40-60); HEMOLYSIS < 15 (0-50); Potassium 5.0 mmol/L (3.4-5.1); Sodium 137 mmol/L (137-145); Total Protein 8.0 g/dL (6.3-8.2); Triglycerides 97 mg/dL (35-150)
[2025-04-25 11:24] LABS: TSH w/ Reflex to FT4 1.42 uIU/mL (0.47-4.68)
== END ==
PROVIDERS: PCP Family Medicine; Referring Provider Family Medicine; Visit Provider Family Medicine
DX: Z00.00 Encounter for general adult medical examination without abnormal findings (principal); E78.5 Hyperlipidemia, unspecified; E11.9 Type 2 diabetes mellitus without complications; Z68.33 Body mass index [BMI] 33.0-33.9, adult; Z85.42 Personal history of malignant neoplasm of other parts of uterus; Z92.21 Personal history of antineoplastic chemotherapy
CPT/HCPCS: 36415; 80053; 80061; 83036; 84443; 85025

== ENCOUNTER → 2025-05-10 08:29 | Outpatient (CLI) | payer OTHER, SELFPAY ==
--- NOTE | 2025-05-10 08:30 | DI.MG.S_ITS ---
MM screening mammo BI: 05/10/2025. BI-RADS: 1 CLINICAL: 55-year old female for bilateral screening mammogram. Tyrer-Cuzick lifetime risk of 20.8%. Current reported family history of breast cancer: mother. PRIOR EXAMS 01/27/2024, 11/23/2022, 09/29/2017. MAMMOGRAPHY TECHNIQUE: 2D and 3D (tomosynthesis) digital mammographic views obtained, with additional images as needed for full coverage. Current study was also evaluated with a Computer Aided Detection (CAD) system. DENSITY B. There are scattered areas of fibroglandular density. MAMMOGRAPHY FINDINGS Bilateral: No suspicious mass, asymmetry, microcalcification, or other abnormality seen. IMPRESSION: * No evidence of malignancy. RECOMMENDATIONS Bilateral * According to the Tyrer-Cuzick Risk Assessment Model, based on the information provided your patient has a greater than 20% lifetime risk for developing breast cancer. Consider supplemental screening with breast MRI and participation in a high risk screening program. * Annual screening mammography. OVERALL ASSESSMENT CATEGORY BI-RADS-1: Negative. The [employer] recommends annual screening mammography beginning at age 40 for women with average risk of breast cancer. ELECTRONICALLY SIGNED: Jana Hall M.D. on 05/11/2025 at 12:12:57 AM PT Interpreting Station ID: [id number]
== END ==
PROVIDERS: PCP Family Medicine; Referring Provider Family Medicine; Visit Provider Family Medicine
DX: Z12.31 Encounter for screening mammogram for malignant neoplasm of breast (principal); Z80.3 Family history of malignant neoplasm of breast
CPT/HCPCS: 77063; 77067

== ENCOUNTER → 2025-06-07 09:26 | Outpatient (CLI) | payer OTHER, SELFPAY ==
--- NOTE | 2025-06-07 09:27 | DI.RAD.S_ITS ---
PROCEDURE: XR CHEST 2V INDICATIONS: cough TECHNIQUE: 2 views of the chest were acquired. COMPARISON: [facility], , CHEST 1 VIEW, 02/18/2016, 17:30. FINDINGS: Surgical changes and devices: None. Lungs and pleura: Lungs are clear. No pleural effusions or pneumothorax. Mediastinum: Mediastinal contours are normal. Heart size is normal. Bones and chest wall: No suspicious bony abnormalities. Soft tissues appear unremarkable. IMPRESSION: No acute cardiopulmonary abnormality is seen. Dictated by: Brent Glynn M.D. on 06/07/2025 at 16:57 Approved by: Brent Glynn M.D. on 06/07/2025 at 16:57
[2025-06-07 11:01] LABS: HEMOLYSIS < 15 (0-50); Iron 83 ug/dL (37-170)
[2025-06-07 11:13] LABS: Percent Iron Saturation 23 % (15-50); Total Iron Binding Capacity 358 ug/dL (265-497); Transferrin 326 mg/dL (206-381)
== END ==
PROVIDERS: PCP Family Medicine; Referring Provider Family Medicine; Visit Provider Family Medicine
DX: R05.9 Cough, unspecified (principal); Z83.49 Family history of other endocrine, nutritional and metabolic diseases
CPT/HCPCS: 36415; 71046; 83540; 83550